=== PATIENT | female | born 1985 | race Caucasian/White ===

== ENCOUNTER 2016-10-01 19:52 | Outpatient (CLI) | payer SELFPAY ==
[2016-10-01 20:08] VITALS: BP 113/69
[2016-10-01] MEDS ORDERED: LACTATED RINGERS 500 ML IV ONE (20:54)
[2016-10-01 21:59] LABS: Bilirubin,Urine NEG (Negative); Blood,Urine NEG (Negative); Ketones,Urine TR mg/dL (Negative); Leukocyte Esterase,Urine NEG (Negative); Mucus,Urine FEW /HPF; Nitrite,Urine NEG (Negative); Protein,Urine <15 mg/dL mg/dL (Negative); Urobilinogen,Urine < 2.0 mg/dL (<2.0)
--- NOTE | 2016-10-03 10:48 | Ultrasound Report ---
ULTRASOUND OB LIMITED History: Spontaneous rupture of membranes Technique: Transabdominal ultrasound with Doppler interrogation. Gestation: Single Position: Cephalic Amniotic Fluid: Normal CANDACE = 12.2 cm Placenta: Anterior Placental Grade: 1 Heart Rate: 145 BPM
== END 2016-10-01 22:26 | disposition home or self-care (01) ==
LOC: TRG 19:52
PROVIDERS: ATTEND Obstetrics & Gynecology
DX: O42.92 Full-term premature rupture of membranes, unspecified as to length of time between rupture and onset of labor (principal); O47.03 False labor before 37 completed weeks of gestation, third trimester; Z3A.36 36 weeks gestation of pregnancy
CPT/HCPCS: 76815; 81001; 96360; J7120

== ENCOUNTER 2016-10-31 17:23 | Outpatient (CLI) | payer SELFPAY ==
[2016-10-31 18:34] VITALS: BP 116/72
== END 2016-10-31 21:35 | disposition home or self-care (01) ==
LOC: TRG 17:23
PROVIDERS: ATTEND Obstetrics & Gynecology
DX: O48.0 Post-term pregnancy (principal); Z87.891 Personal history of nicotine dependence; Z3A.40 40 weeks gestation of pregnancy

== ENCOUNTER 2016-11-04 12:25 | Inpatient (IN) | payer SELFPAY ==
--- NOTE | 2016-11-04 12:47 | History and Physical Report ---
History of Present Illness Date of examination: 11/04/16 Date of admission: 11/04/16 12:25 Chief complaint: seen in clinic and noted to have a non reasuring FHT with some variable decels. Patient is jayme. History of present illness: This is a 31 yo at 40+3 weeks admitted for NRFHT at term with advanced dilatation. Sent to L and d for augmentation of labor. Past History Past Medical History: no pertinent history Past Surgical History: no surgical history Family/Genetic History: none Social history: no significant social history, . denies: smoking, alcohol abuse, prescription drug abuse - Obstetrical History Expected Date of Delivery: 11/02/16 Actual Gestation: 40 Week(s) 2 Day(s) : 6 Para: 4 Hx # Term Pregnancies: 4 Number of Pregnancies: 0 Spontaneous Abortions: 1 Induced : 0 Number of Living Children: 4 Medications and Allergies Allergies Allergy/AdvReac Type Severity Reaction Status Date / Time No Known Allergies Allergy Verified 10/01/16 20:57 Review of Systems All systems: negative Genitourinary: contractions - Physical Exam Breasts: Positive: normal Cardiovascular: Regular rate, Normal S1 Lungs: Positive: Clear to auscultation, Normal air movement Abdomen: Positive: normal appearance, soft, normal bowel sounds. Negative: distention, tenderness Genitourinary (Female): Positive: normal external genitalia, normal perenium Vulva: both: normal Vagina: Positive: normal moisture Uterus: Positive: normal size, normal contour Adnexa: both: normal Anus/Rectum: Positive: normal perianal skin Extremities: Positive: normal Deep Tendon Reflex Grade: Normal +2 - Obstetrical FHR: auscultation normal Cervical Dilatation: 6 Cervical Effacement Percentage: 80 station: 0 Uterine Contraction Pattern: Regular Uterine Tone Measurement Phase: Contraction Uterine Contraction Intensity: Mild Results All other labs normal. Assessment and Plan A/P IUP 40+3 weeks NRFHT advanced dilatition GBS neg plan for augmentation arom expect vaginal delivery
[2016-11-04] MEDS ORDERED: ZOFRAN IV PRN ×2 (12:48→17:32)
[2016-11-04] MEDS ORDERED: PHENERGAN PO PRN ×2 (12:48→17:32)
[2016-11-04] MEDS ORDERED: NARCAN 0.4 MG/1 ML IV PRN (12:48)
[2016-11-04] MEDS ORDERED: ePHEDrine SULFATE IV PRN (12:48)
[2016-11-04] MEDS ORDERED: XYLOCAINE 2% INFILTRATI ONE (12:48)
[2016-11-04] MEDS ORDERED: BRETHINE SUB-Q PRN (12:48)
[2016-11-04] MEDS ORDERED: MINERAL OIL PO PRN (12:48)
[2016-11-04] MEDS ORDERED: BRETHINE IVP PRN (12:48)
[2016-11-04] MEDS ORDERED: STADOL IV PRN (12:48)
[2016-11-04] MEDS ORDERED: PITOCin/NS 20 UNIT/1000ML DRIP 20 UNITS/1,000 ML BAG IV SCH ×2 (13:00→18:00)
[2016-11-04] MEDS ORDERED: PITOCin/NS 30 UNIT/500ML 30 UNITS/500 ML BAG IV SCH (13:00)
[2016-11-04] MEDS ORDERED: LACTATED RINGERS 1,000 ML IV SCH (13:00)
[2016-11-04 13:39] LABS: Hematocrit 29.8 % (30.3-42.9); Hemoglobin 9.6 gm/dl (10.1-14.3); Mean Corpuscular HGB Conc 32 % (30-34); Mean Corpuscular Hemoglobin 26 pg (28-32); Mean Corpuscular Volume 82 fl (79-97); Platelet Count 225 K/mm3 (140-440); Red Blood Count 3.66 M/mm3 (3.65-5.03); Red Cell Distribution Width 14.9 % (13.2-15.2); White Blood Count 10.4 K/mm3 (4.5-11.0)
[2016-11-04] MEDS: SUBLIMAZE IV PRN ×2 (14:39→16:51)
[2016-11-04] MEDS: PITOCin/NS 30 UNIT/500ML 30 UNITS/500 ML BAG IV SCH ×3 (14:56→16:17)
[2016-11-04] MEDS ORDERED: NARCAN 2 MG/2 ML ONE (17:15)
[2016-11-04] MEDS ORDERED: PHENERGAN PR PRN (17:32)
[2016-11-04] MEDS ORDERED: BENADRYL PO PRN (17:32)
[2016-11-04] MEDS ORDERED: LANSINOH TP PRN (17:32)
[2016-11-04] MEDS ORDERED: TUCKS PAD TP PRN (17:32)
[2016-11-04] MEDS ORDERED: TYLENOL PO PRN (17:32)
[2016-11-04] MEDS ORDERED: PERCOCET 5/325 PO PRN (17:32)
[2016-11-04] MEDS ORDERED: MILK OF MAGNESIA PO PRN (17:32)
[2016-11-04] MEDS ORDERED: DULCOLAX PR PRN (17:32)
--- NOTE | 2016-11-04 17:42 | Procedure Note ---
OB Delivery Note - Delivery Date of Delivery: 11/04/16 Surgeon: JAZZMINE DOMÍNGUEZ - Vaginal Delivery presentation: vertex Delivery position: OA Intrapartum events: none Delivery induction: none Delivery augmentation: rupture of membranes Delivery monitor: external FHT, external uterine Route of delivery: Delivery placenta: spontaneous Delivery cord: 3 umbilical vessels Episiotomy: none Delivery laceration: none Anesthesia: none Delivery comments: patient was noted to be c/c/ and commenced to pushing a viable female at 1720. Weight 6 pounds 11 .4 oz with apgars 8/9. After baby delivered placed on mom chest awaited pulsating cord for 2min clamped and cut and handed baby to mom. The placenta delivered intact with 3 vessel cord at 1725. No lacs noted. 200 EBL. Patient tolerated procedure well. - Infant A at 1 minute: 8 at 5 minutes: 9 Infant Gender: Female
[2016-11-04] MEDS ORDERED: SENOKOT S PO SCH (18:00)
[2016-11-04] MEDS ORDERED: PRENATAL VITAMIN PO SCH (18:00)
[2016-11-04] MEDS ORDERED: SODIUM CHLORIDE FLUSH SYRINGE 10 ML IV NR (18:00)
[2016-11-04] MEDS: MOTRIN PO SCH (19:16)
[2016-11-04] MEDS: NORCO 5/325 PO PRN (20:50)
[2016-11-04] MEDS ORDERED: COLACE PO SCH (22:00)
[2016-11-05] MEDS ORDERED: M-M-R II VACCINE SUB-Q ONE (06:00)
[2016-11-05] MEDS ORDERED: BOOSTRIX IM ONE (06:00)
[2016-11-05] MEDS: MOTRIN PO SCH ×3 (06:12→18:01)
[2016-11-05 06:33] LABS: Hematocrit 28.9 % (30.3-42.9); Hemoglobin 9.2 gm/dl (10.1-14.3)
[2016-11-05] MEDS ORDERED: SENOKOT S PO SCH (10:00)
--- NOTE | 2016-11-05 14:44 | Progress Note ---
Assessment and Plan A/P PPD#1 s/p Doing well bonding with baby VSS iron for anemia H-- 9.6----9.2 Breast feeding O+ no rhogam indicated Consider d/c home today Subjective - Subjective Date of service: 11/05/16 Principal diagnosis: s/p Interval history: This is a 31 yo at 40+3 weeks admitted for NRFHT at term with advanced dilatation. Sent to L and d for augmentation of labor. Patient reports: appetite normal, voiding normally, pain well controlled : doing well, bottle feeding Objective - Vital Signs Latest vital signs: Vital Signs Temp Pulse Pulse Pulse Resp BP BP 11/05/16 12:41 98.4 F 86 18 98/56 11/05/16 08:46 98.7 F 83 18 100/67 11/05/16 06:12 18 11/05/16 04:00 -98.8 F L 71 20 98/53 11/05/16 00:00 97.8 F 84 84 18 94/55 11/04/16 20:50 18 11/04/16 19:45 97.8 F 69 69 18 104/67 11/04/16 19:16 16 11/04/16 18:45 98.7 F 70 18 106/68 11/04/16 18:39 71 11/04/16 18:34 81 11/04/16 18:33 70 106/68 11/04/16 18:29 69 11/04/16 18:24 80 11/04/16 18:19 73 11/04/16 18:18 66 106/65 11/04/16 18:15 98.7 F 73 18 106/65 11/04/16 18:14 77 11/04/16 18:09 68 11/04/16 18:04 73 11/04/16 18:03 74 111/69 11/04/16 18:00 98.7 F 74 18 111/69 11/04/16 17:59 89 11/04/16 17:54 83 11/04/16 17:49 98 H 11/04/16 17:48 88 112/68 11/04/16 17:45 98.7 F 88 18 112/68 11/04/16 17:44 93 H 11/04/16 17:39 92 H 11/04/16 17:34 89 107/62 11/04/16 17:30 98.7 F 89 18 107/62 11/04/16 16:20 97.4 F L 65 18 109/69 11/04/16 16:17 65 109/69 11/04/16 15:38 75 111/68 11/04/16 14:56 77 114/72 Pulse Ox 11/05/16 12:41 11/05/16 08:46 11/05/16 06:12 11/05/16 04:00 11/05/16 00:00 11/04/16 20:50 11/04/16 19:45 11/04/16 19:16 11/04/16 18:45 98 11/04/16 18:39 100 11/04/16 18:34 80 L 11/04/16 18:33 11/04/16 18:29 98 11/04/16 18:24 100 11/04/16 18:19 100 11/04/16 18:18 11/04/16 18:15 100 11/04/16 18:14 100 11/04/16 18:09 100 11/04/16 18:04 100 11/04/16 18:03 11/04/16 18:00 100 11/04/16 17:59 98 11/04/16 17:54 100 11/04/16 17:49 100 11/04/16 17:48 11/04/16 17:45 100 11/04/16 17:44 99 11/04/16 17:39 98 11/04/16 17:34 98 11/04/16 17:30 98 11/04/16 16:20 11/04/16 16:17 11/04/16 15:38 11/04/16 14:56 Intake and Output 11/04/16 11/05/16 11/05/16 22:59 06:59 14:59 Intake Total 500 560 Output Total 400 1200 Balance -400 -700 560 Intake: Oral 500 560 Output: Urine 400 1200 Indwelling Catheter 1200 Void 400 Other: Total, Intake Amount 500 240 Total, Output Amount 400 1200 # Voids Void 1 1 1 Estimated Blood Loss 200 - Exam Breasts: Present: normal Cardiovascular: Present: Regular rate, Normal S1 Lungs: Present: Clear to auscultation, Normal air movement Abdomen: Present: normal appearance, soft, distention, tenderness, normal bowel sounds Vulva: both: normal Uterus: Present: normal, firm, fundal height below umbilicus. Absent: bogginess , tenderness Extremities: Present: normal Deep Tendon Reflex Grade: Normal +2 - Labs Labs: Abnormal lab results 11/05/16 Range/Units 06:15 Hgb 9.2 L (10.1-14.3) gm/dl Hct 28.9 L (30.3-42.9) %
--- NOTE | 2016-11-05 14:46 | Discharge Summary ---
Providers - Providers Date of Admission: 11/04/16 12:25 Date of discharge: 11/05/16 Attending physician: JAZZMINE DOMÍNGUEZ MD Primary care physician: JAZZMINE DOMÍNGUEZ MD Hospitalization Reason for admission: active labor Delivery: Episiotomy: none Laceration: none Other procedures: none complications: none Discharge diagnosis: IUP at term delivered baby: female Condition at discharge: Good Disposition: DC-01 TO HOME OR SELFCARE Plan - Provider Discharge Summary Activity: routine, no sex for 6 weeks, no heavy lifting 4 weeks, no strenuous exercise Diet: routine Instructions: routine Additional instructions: [] Smoking cessation referral if applicable(refer to patient education folder for contact #) [] Refer to [facility]'s [facility] Booklet Call your doctor immediately for: * Fever > 100.5 * Heavy vaginal bleeding ( >1 pad per hour) * Severe persistent headache * Shortness of breath * Reddened, hot, painful area to leg or breast * Drainage or odor from incision. * Keep incision clean and dry at all times and follow doctor's instructions regarding bathing/showering - Follow up plan Follow up: JAZZMINE DOMÍNGUEZ MD [Primary Care Provider] - 12/02/16
[2016-11-05] MEDS: NORCO 5/325 PO PRN (15:10)
[2016-11-05 21:03] VITALS: BP 103/63
== END 2016-11-05 20:50 | disposition home or self-care (01) | DRG 775 ==
LOC: LD 12:25 → OB 19:48
PROVIDERS: ADMIT Obstetrics & Gynecology; ATTEND Obstetrics & Gynecology
PROC: 10E0XZZ Delivery of Products of Conception, External Approach (ICD-10-PCS; principal; 2016-11-04)
DX: O76 Abnormality in fetal heart rate and rhythm complicating labor and delivery (principal); Z3A.40 40 weeks gestation of pregnancy; Z37.0 Single live birth
CPT/HCPCS: 36415; 85014; 85018; 85027; 86592; 86850; 86900; 86901; 99211; A6250; G0463; J2310; J2590; J3010; J7120